=== PATIENT | male | born 1980 ===

== ENCOUNTER 2019-02-20 05:35 | Day surgery (SDC) | payer OTHER ==
[2019-02-20] MEDS ORDERED: ULTRACET PO (09:37)
[2019-02-20] MEDS ORDERED: PROTONIX40 MG PO (09:37)
[2019-02-20] MEDS ORDERED: SURFAK240 M1 PO (09:37)
== END 2019-02-20 15:30 | disposition home or self-care (01) ==
LOC: CIR.AMB 05:35 → ADM 08:00 → CIR.AMB 15:30
DX: K40.90 Unilateral inguinal hernia, without obstruction or gangrene, not specified as recurrent (principal)

== ENCOUNTER 2020-10-15 08:00 | Outpatient (CLI) | payer OTHER ==
[~2020-10-15 08:00] MED LIST: PROTONIX40 MG PO; SURFAK240 M1 PO; ULTRACET PO
== END 2020-10-15 08:30 | disposition home or self-care (01) ==
LOC: PPH VACUNA 08:00
DX: Z23 Encounter for immunization (principal)

== ENCOUNTER 2020-11-05 08:00 | Outpatient (CLI) | payer OTHER | END 2020-11-05 08:30 | disposition home or self-care (01) | LOC: PPH VACUNA 08:00 | DX: Z23 Encounter for immunization (principal) ==